=== PATIENT | male | born 1935 | race Caucasian/White ===

== ENCOUNTER → 2017-10-20 09:36 | Outpatient (CLI) | payer MEDICARE, BC, OTHER, SELFPAY ==
[2017-10-20 12:18] LABS: Absolute Lymphocyte Count 0.75 X10^3/ul (0.83-4.51); Absolute Neutrophil Count 3.8 X10^3/uL (2.0-7.7); Basophil# 0.01 X10^3/uL; Basophil% 0.2 % (0-1); Eosinophil# 0.14 X10^3/uL; Eosinophils% 2.6 % (0-5); Hematocrit 46.2 % (40-54); Lymphocyte # 0.75 X10^3/ul (4.0); Lymphocyte % 14.1 % (19-41); Mean Corp Hgb Conc 34.6 g/gl (32-36); Mean Corpuscular Hgb 30.9 pg (27.0-32.0); Mean Corpuscular Volume 89.2 fL (80-94); Monocyte# 0.64 X10^3/uL; Monocyte% 12.1 % (0-10); Neutrophil # 3.76 X10^3/uL (2.7-7.7); Neutrophil % 70.8 % (47-70); Platelet Count 144 K/mm3 (150-450); RBC Distribution Width CV 12.8 % (11.6-14.6); RBC Distribution Width SD 41.9 fl (35.1-43.9); Red Blood Count 5.18 M/mm3 (4.6-6.2); White Blood Count 5.3 K/mm3 (4.4-11.0)
[2017-10-20 12:22] LABS: POSITIVE COUNT NO; POSITIVE DIFFERENTIAL NO; POSITIVE MORPHOLOGY NO
[2017-10-20 12:32] LABS: Anion Gap 9 (5-15); BUN 22 mg/dL (7-18); BUN/Creat Ratio 21.4 RATIO (10-20); Calcium,Total 8.9 mg/dL (8.5-10.1); Chloride 107 mmol/L (98-107); Creatinine, Serum 1.03 mg/dL (0.70-1.30); EST Glomerular Filtration Rate 73 mL/min (>60); Est Glom Filt Rate - Afr Amer 89 mL/min (>60); Glucose 127 mg/dL (74-106); Magnesium 2.3 mg/dL (1.6-2.6); Potassium 4.4 mmol/L (3.5-5.1); Sodium Level 143 mmol/L (136-145); T4 Free Direct 1.37 ng/dL (0.76-1.46); Thyroid Stim Hormone (TSH) 0.73 uIU/mL (0.358-3.74)
== END ==
PROVIDERS: Family Provider Family Medicine; PCP Family Medicine; Visit Provider Family Medicine
DX: I10 Essential (primary) hypertension (principal); E61.2 Magnesium deficiency; D69.6 Thrombocytopenia, unspecified; R60.9 Edema, unspecified
CPT/HCPCS: 36415; 80048; 83735; 84439; 84443; 85025

== ENCOUNTER → 2018-07-07 11:01 | Outpatient (CLI) | payer MEDICARE, BC, OTHER, SELFPAY ==
[2018-07-07 12:13] LABS: Absolute Lymphocyte Count 0.57 X10^3/ul (0.83-4.51); Absolute Neutrophil Count 6.3 X10^3/uL (2.0-7.7); Basophil# 0.02 X10^3/uL; Basophil% 0.3 % (0-1); Eosinophil# 0.05 X10^3/uL; Eosinophils% 0.7 % (0-5); Hemoglobin 15.9 g/dl (13.0-16.5); Lymphocyte # 0.57 X10^3/ul (4.0); Lymphocyte % 7.8 % (19-41); Mean Corp Hgb Conc 34.6 g/gl (32-36); Mean Corpuscular Hgb 30.8 pg (27.0-32.0); Mean Platelet Vol. 10.9 fl (6.2-12.0); Monocyte# 0.45 X10^3/uL; Monocyte% 6.1 % (0-10); Neutrophil # 6.25 X10^3/uL (2.7-7.7); Platelet Count 154 K/mm3 (150-450); RBC Distribution Width SD 42.4 fl (35.1-43.9); Red Blood Count 5.17 M/mm3 (4.6-6.2); White Blood Count 7.4 K/mm3 (4.4-11.0)
[2018-07-07 12:15] LABS: Differential Indicated SCAN CRITERIA MET; POSITIVE COUNT NO; POSITIVE DIFFERENTIAL YES; POSITIVE MORPHOLOGY NO
== END ==
PROVIDERS: Family Provider Family Medicine; PCP Family Medicine; Visit Provider Family Medicine
DX: K92.1 Melena (principal); R19.7 Diarrhea, unspecified
CPT/HCPCS: 36415; 85025; 87329

== ENCOUNTER → 2018-10-23 13:28 | Outpatient (CLI) | payer MEDICARE, BC, OTHER, SELFPAY ==
[2018-10-23 16:03] LABS: Vitamin B12 465 pg/mL (211-911)
[2018-10-23 16:09] LABS: CRP < 2.90 mg/L (0.0-3.0); Magnesium 2.3 mg/dL (1.6-2.6); T4 Free Direct 1.19 ng/dL (0.76-1.46); Thyroid Stim Hormone (TSH) 1.26 uIU/mL (0.358-3.74)
== END ==
PROVIDERS: Family Provider Family Medicine; PCP Family Medicine; Visit Provider Family Medicine
DX: R20.2 Paresthesia of skin (principal); E78.5 Hyperlipidemia, unspecified; E61.2 Magnesium deficiency
CPT/HCPCS: 36415; 82607; 83735; 84439; 84443; 86140

== ENCOUNTER → 2018-11-20 14:56 | Outpatient (CLI) | payer MEDICARE, BC, OTHER, SELFPAY ==
--- NOTE | 2018-11-20 16:00 | MRI_ITS ---
STUDY: MRI LUMBAR SPINE WITH AND WITHOUT CONTRAST REASON FOR EXAM: Male, 83 years old. Bilateral leg numbness after lifting heavy object, history of T7-T8 hemangioma TECHNIQUE: Standardized fat and water weighted pulse sequences were obtained in the sagittal and axial planes. 19 IV Dotarem was administered for the contrast portion of the examination. 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 The degree of displacement is stable since 2014. The rest of the vertebral bodies are aligned. There is a limbus change of L2 anterior superior corner. Diffuse marrow is normal with superimposed subchondral degenerative change. Paraspinous soft tissues are normal. Only the superior portions of SI joints are imaged and no diagnostic assessment can be made. Conus medullaris terminates at L1. Cauda equina is restricted at L4-L5. L4-L5 has mild spondylotic thecal sac compression. There is right lateral recess stenosis with patent left recess. There is severe bilateral foraminal stenosis. Remainder of the levels have patent thecal sac. There is severe left L5-S1 spondylotic foraminal stenosis. There is mild focal degenerative enhancement in the right L4-L5 posterior elements. Marrow, epidural and intradural enhancement is normal. Overall appearance is similar to 2014. MRI/Spine Lumbar W/WO Contrast IMPRESSION: 1. 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 2. Mild L4-L5 spondylotic thecal sac stenosis. 3. Bilateral L4-L5 and left L5-S1 chronic stable foraminal stenosis. 4. No enhancing lesions. Electronically Signed: Stacy Bahena, at 18:32 EDT Tel , Service support ,
[2018-11-20 16:11] LABS: EGFR FINGERSTICK > 60.0000 mL/min (>60)
== END ==
PROVIDERS: Family Provider Family Medicine; PCP Family Medicine; Referring Provider Family Medicine; Visit Provider Family Medicine
DX: D18.09 Hemangioma of other sites (principal); R20.2 Paresthesia of skin; Z92.3 Personal history of irradiation
CPT/HCPCS: 72158; A9575

== ENCOUNTER → 2018-12-08 09:04 | Outpatient (CLI) | payer MEDICARE, BC, OTHER, SELFPAY ==
--- NOTE | 2018-12-08 09:12 | MRI_ITS ---
STUDY: MRI THORACIC SPINE WITH AND WITHOUT CONTRAST REASON FOR EXAM: Male, 83 years old. Lower leg numbness. Prior surgery for HEMANGIOMA at T7-T8 in 2002 TECHNIQUE: 20 IV Dotarem was administered for the contrast portion of the examination. COMPARISON: 01/17/2009 FINDINGS: Right-sided laminectomy at the T7-8 level. Normal thoracic spinal alignment. No evidence of acute compression fracture. The thoracic cord is unremarkable. Diffuse spondylosis. Patchy areas of T1 and T2 hyperintensity throughout the mid and lower thoracic vertebral bodies could be related to prior radiation therapy. Mild diffuse degenerative disc disease without evidence of significant central canal stenosis or lara exiting nerve root impingement. Moderate right foraminal stenosis at the T7-8 level. Paraspinal soft tissues are unremarkable. MRI/Spine Thoracic W/WO Contrast IMPRESSION: Multilevel degenerative disease and postoperative change as described. No evidence of cord pathology or nerve root impingement. Electronically Signed: Dontrell Wheeler MD at 11:57 EDT Tel , Service support ,
== END ==
PROVIDERS: Family Provider Family Medicine; PCP Family Medicine
DX: D18.09 Hemangioma of other sites (principal); Z98.890 Other specified postprocedural states
CPT/HCPCS: 72157; A9575

== ENCOUNTER → 2018-12-09 07:22 | Outpatient (CLI) | payer MEDICARE, BC, OTHER, SELFPAY ==
--- NOTE | 2018-12-09 10:26 | NEURO_ITS ---
NCS and/or EMG Patient Report Ordering Doctor: nathalie Rosas DATE OF SERVICE: 12/09/18 This is a bilateral lower extremity nerve conduction study and right lower extremity EMG performed on this 83-year-old male with a history of thoracic spine surgery and radiation for hematoma in 2002. In August he began to experience acute numbness in his feet, after pushing on a heavy object. He does not have back pain and did not experience back pain at any point. He is healthy otherwise. There is no history of diabetes. Prior to August he did drink 1 to 2 ounces of alcohol per day, since that time his use of alcohol has been reduced. He does report significant stress since August. Bilateral lower extremity sensory and motor nerve conduction study is performed. The sural sensory responses are absent bilaterally and the conduction velocities from the motor nerves are symmetrically slowed with reduced amplitudes and prolonged distal latencies. The tibial and common peroneal F- wave latencies are prolonged and the tibial H reflex responses are reduced symmetrically. Right lower extremity needle electromyography is performed. Muscles evaluate include the extensor digitorum brevis, abductor hallucis, medial gastrocnemius, anterior tibialis, vastus medialis and vastus lateralis muscles. All muscles demonstrated normal insertional activity with absence of pathologic spontaneous activity. Motor unit potential recruitment pattern and amplitude was normal in all muscles tested. 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 Other investigations could include serology for B12 levels, serum and urine protein electrophoresis, and LFTs. Dictated using [employer] software not proofread
== END ==
PROVIDERS: Family Provider Family Medicine; PCP Family Medicine
DX: M43.16 Spondylolisthesis, lumbar region (principal); G62.9 Polyneuropathy, unspecified
CPT/HCPCS: 95886; 95910

== ENCOUNTER → 2018-12-11 09:48 | Outpatient (CLI) | payer MEDICARE, BC, OTHER, SELFPAY ==
[2018-12-11 12:15] LABS: Absolute Lymphocyte Count 0.58 X10^3/uL (0.83-4.51); Absolute Neutrophil Count 6.7 X10^3/uL (2.0-7.7); Basophil# 0.03 X10^3/uL; Basophil% 0.4 % (0-1); Eosinophil# 0.08 X10^3/uL; Hematocrit 47.6 % (40-54); Hemoglobin 15.9 g/dL (13.0-16.5); Lymphocyte # 0.58 X10^3/ul (4.0); Lymphocyte % 7.4 % (19-41); Mean Corp Hgb Conc 33.4 g/dL (32-36); Mean Corpuscular Hgb 30.8 pg (27.0-32.0); Mean Corpuscular Volume 92.1 fL (80-94); Mean Platelet Vol. 10.9 fl (6.2-12.0); Monocyte# 0.45 X10^3/uL; Monocyte% 5.7 % (0-10); NRBC Flagged by Analyzer 0 % (0-5); Neutrophil % 85.2 % (47-70); POSITIVE DIFFERENTIAL YES; Platelet Count 144 K/mm3 (150-450); RBC Distribution Width CV 12.4 % (11.6-14.6); RBC Distribution Width SD 42.3 fl (35.1-43.9); Red Blood Count 5.17 M/mm3 (4.6-6.2); White Blood Count 7.9 K/mm3 (4.4-11.0)
[2018-12-11 12:21] LABS: Differential Indicated SCAN CRITERIA MET
[2018-12-11 13:05] LABS: ALB/GLOB Ratio 1.1 RATIO (0.9-2.4); AST(SGOT) 21 U/L (15-37); Alanine Aminotransfer ALT/SGPT 36 U/L (16-61); Albumin, Serum 3.4 g/dL (3.2-5.0); Alkaline Phosphatase 97 U/L (45-117); Anion Gap 9 (5-15); BUN 21 mg/dL (7-18); BUN/Creat Ratio 19.1 RATIO (10-20); Calcium,Total 8.8 mg/dL (8.5-10.1); Chloride 107 mmol/L (98-107); EST Glomerular Filtration Rate 68 mL/min (>60); Est Glom Filt Rate - Afr Amer 82 mL/min (>60); Globulin 3.2 g/dL (2.2-4.2); Glucose 164 mg/dL (74-106); Potassium 3.8 mmol/L (3.5-5.1); Protein, Total 6.6 g/dL (6.4-8.2); Sodium Level 141 mmol/L (136-145)
[2018-12-15 16:08] LABS: PROEL- A/G Ratio 1.3 (0.7-1.7); PROEL- Albumin 3.5 g/dL (2.9-4.4); PROEL- Alpha-1 Globulin 0.2 g/dL (0.0-0.4); PROEL- Alpha-2 Globulin 0.8 g/dL (0.4-1.0); PROEL- Beta Globulin 0.9 g/dL (0.7-1.3); PROEL- Gamma Globulin 0.7 g/dL (0.4-1.8); PROEL- Globulin, Total 2.7 g/dL (2.2-3.9); PROEL- TOTAL PROTEIN 6.2 g/dL (6.0-8.5); PROELU- Albumin, Urine 66.5 % (.); PROELU- Alpha-1-Globulin,Ur 5.1 % (.); PROELU- Alpha-2-Globulin,Ur 6.7 % (.); PROELU- Beta Globulin, Ur 11.7 % (.); Total Protein, Ur 30.3 mg/dL (Not Estab.)
== END ==
PROVIDERS: Family Provider Family Medicine; PCP Family Medicine; Visit Provider Family Medicine
DX: G62.9 Polyneuropathy, unspecified (principal); R20.2 Paresthesia of skin
CPT/HCPCS: 36415; 80053; 84165; 84166; 85025

== ENCOUNTER → 2018-12-21 09:42 | Outpatient (CLI) | payer MEDICARE, BC, OTHER, SELFPAY ==
--- NOTE | 2018-12-21 10:05 | ART_ITS ---
Reason For Study: Peripheral Neuropathy Procedure A bilateral lower extremity continuous wave Doppler with analog waveform analysis,segmental pressures,and ankle brachial indexes without exercise. Left Segmental Pressures Left brachial= 162mmHg. Left posterior tibial artery = 190mmHg. Left dorsalis pedis artery = 189mmHg. Left digit = 143 mmHg. The left dorsalis pedis waveforms are triphasic. The left posterior tibial artery waveforms are triphasic. Right Segmental Pressures Right brachial= 158mmHg. Right posterior tibial artery = 214mmHg. Right dorsalis pedis artery = 209mmHg. Right digit = 153 mmHg. The right dorsalis pedis waveforms are triphasic. The right posterior tibial artery waveforms are triphasic. Indices The right ankle brachial index by the dorsalis pedis is 1.29. The right ankle brachial index by the posterior tibial artery is 1.32. The right digital-brachial index is 0.94. The left ankle brachial index by the dorsalis pedis is 1.17. The left ankle brachial index by the posterior tibial artery is 1.17. The left digital-brachial index is 0.88. Interpretation Summary Triphasic Doppler waveforms are noted at ankle level bilaterally. Pulse-volume recording waveform amplitudes are satisfactory at all levels but the left digital level, which is diminished. Resting ankle-brachial indices are normal bilaterally. Digital-brachial indices are normal bilaterally. There is no evidence of significant arterial occlusive disease in the lower extremities bilaterally. Ordering Physician: Johnny Caputo Referring Physician: Darrel Bryant Performed By: Felicia Sahu RVT
== END ==
PROVIDERS: Family Provider Family Medicine; PCP Family Medicine
DX: I73.9 Peripheral vascular disease, unspecified (principal); G62.9 Polyneuropathy, unspecified
CPT/HCPCS: 93923

== ENCOUNTER → 2019-01-11 13:09 | Outpatient (CLI) | payer MEDICARE, BC, OTHER, SELFPAY ==
[2019-01-11 15:04] LABS: Absolute Neutrophil Count 5.4 X10^3/uL (2.0-7.7); Basophil# 0.03 X10^3/uL; Basophil% 0.5 % (0-1); Differential Indicated SCAN CRITERIA MET; Eosinophil# 0.06 X10^3/uL; Eosinophils% 0.9 % (0-5); Hematocrit 48.3 % (40-54); Hemoglobin 16.2 g/dL (13.0-16.5); Lymphocyte % 9.1 % (19-41); Mean Corp Hgb Conc 33.5 g/dL (32-36); Mean Corpuscular Volume 92.4 fL (80-94); Mean Platelet Vol. 10.9 fl (6.2-12.0); Monocyte# 0.52 X10^3/uL; Monocyte% 7.9 % (0-10); NRBC Flagged by Analyzer 0 % (0-5); Neutrophil # 5.35 X10^3/uL (2.7-7.7); Neutrophil % 81.3 % (47-70); POSITIVE DIFFERENTIAL YES; Platelet Count 155 K/mm3 (150-450); RBC Distribution Width CV 12.5 % (11.6-14.6); RBC Distribution Width SD 42.5 fl (35.1-43.9); Red Blood Count 5.23 M/mm3 (4.6-6.2); White Blood Count 6.6 K/mm3 (4.4-11.0)
[2019-01-11 15:28] LABS: Hemoglobin A1c 6.1 % (4.2-6.3)
[2019-01-11 15:30] LABS: ALB/GLOB Ratio 1.2 RATIO (0.9-2.4); AST(SGOT) 20 U/L (15-37); Alanine Aminotransfer ALT/SGPT 35 U/L (16-61); Albumin, Serum 3.6 g/dL (3.2-5.0); Alkaline Phosphatase 87 U/L (45-117); Anion Gap 10 (5-15); BUN 27 mg/dL (7-18); Chloride 106 mmol/L (98-107); Creatinine, Serum 1.23 mg/dL (0.70-1.30); EST Glomerular Filtration Rate 60 mL/min (>60); Est Glom Filt Rate - Afr Amer 72 mL/min (>60); Glucose 143 mg/dL (74-106); Lipase 239 U/L (73-393); Potassium 4.5 mmol/L (3.5-5.1); Protein, Total 6.6 g/dL (6.4-8.2); Sodium Level 142 mmol/L (136-145); T4 Free Direct 1.14 ng/dL (0.76-1.46)
[2019-01-11 15:32] LABS: Vitamin B12 696 pg/mL (211-911)
[2019-01-11 15:46] LABS: Differential Comment SCANNED
== END ==
PROVIDERS: PCP Family Medicine; Visit Provider Family Medicine
DX: G62.9 Polyneuropathy, unspecified (principal); R20.2 Paresthesia of skin; D69.6 Thrombocytopenia, unspecified; R73.01 Impaired fasting glucose; F41.9 Anxiety disorder, unspecified
CPT/HCPCS: 36415; 80053; 82607; 83036; 83690; 84439; 84443; 85025

== ENCOUNTER → 2019-02-03 11:48 | Outpatient (CLI) | payer MEDICARE, BC, OTHER, SELFPAY ==
[2019-02-03 15:42] LABS: Absolute Lymphocyte Count 0.59 X10^3/uL (0.83-4.51); Basophil# 0.05 X10^3/uL; Basophil% 0.7 % (0-1); Eosinophils% 1.3 % (0-5); Hematocrit 52.2 % (40-54); Hemoglobin 17.3 g/dL (13.0-16.5); Lymphocyte # 0.59 X10^3/ul (4.0); Lymphocyte % 7.9 % (19-41); Mean Corp Hgb Conc 33.1 g/dL (32-36); Mean Corpuscular Hgb 30.7 pg (27.0-32.0); Mean Corpuscular Volume 92.7 fL (80-94); Mean Platelet Vol. 10.9 fl (6.2-12.0); Monocyte# 0.64 X10^3/uL; Monocyte% 8.6 % (0-10); NRBC Flagged by Analyzer 0 % (0-5); Neutrophil # 6.04 X10^3/uL (2.7-7.7); Neutrophil % 81.1 % (47-70); POSITIVE DIFFERENTIAL YES; Platelet Count 157 K/mm3 (150-450); RBC Distribution Width CV 12.1 % (11.6-14.6); RBC Distribution Width SD 41.8 fl (35.1-43.9); Red Blood Count 5.63 M/mm3 (4.6-6.2); White Blood Count 7.5 K/mm3 (4.4-11.0)
[2019-02-03 15:58] LABS: Hemoglobin A1c 5.7 % (4.2-6.3)
[2019-02-03 16:02] LABS: AST(SGOT) 18 U/L (15-37); Alanine Aminotransfer ALT/SGPT 34 U/L (16-61); Albumin, Serum 3.5 g/dL (3.2-5.0); Alkaline Phosphatase 92 U/L (45-117); Anion Gap 8 (5-15); BUN 22 mg/dL (7-18); BUN/Creat Ratio 22.4 RATIO (10-20); Calcium,Total 8.9 mg/dL (8.5-10.1); Chloride 104 mmol/L (98-107); Creatinine, Serum 0.98 mg/dL (0.70-1.30); EST Glomerular Filtration Rate 77 mL/min (>60); Est Glom Filt Rate - Afr Amer 94 mL/min (>60); Globulin 3.4 g/dL (2.2-4.2); Glucose 96 mg/dL (74-106); PSA,Total - Annual Screen 2.08 ng/mL (0.00-4.00); Potassium 4.1 mmol/L (3.5-5.1); Protein, Total 6.9 g/dL (6.4-8.2); Sodium Level 139 mmol/L (136-145); T4 Free Direct 1.17 ng/dL (0.76-1.46); Thyroid Stim Hormone (TSH) 1.59 uIU/mL (0.358-3.74)
[2019-02-03 16:15] LABS: Differential Indicated SCAN CRITERIA MET
[2019-02-03 17:45] LABS: Platelet Estimate ADEQUATE (ADEQ); Red Cell Morphology NORM C+C NORMAL (NORM C&C)
== END ==
PROVIDERS: Family Provider Family Medicine; PCP Family Medicine; Visit Provider Family Medicine
DX: Z01.812 Encounter for preprocedural laboratory examination (principal); E03.9 Hypothyroidism, unspecified; R63.4 Abnormal weight loss; D69.6 Thrombocytopenia, unspecified; I10 Essential (primary) hypertension; Z12.9 Encounter for screening for malignant neoplasm, site unspecified
CPT/HCPCS: 36415; 80053; 83036; 84153; 84439; 84443; 85025; G0103

== ENCOUNTER → 2019-06-02 15:56 | Outpatient (CLI) | payer MEDICARE, BC, OTHER, SELFPAY ==
[2019-02-11 15:09] VITALS: BMI 29.9
[2019-06-02 17:43] LABS: Absolute Lymphocyte Count 0.77 X10^3/uL (0.83-4.51); Absolute Neutrophil Count 5.5 X10^3/uL (2.0-7.7); Basophil# 0.03 X10^3/uL; Basophil% 0.4 % (0-1); Eosinophil# 0.11 X10^3/uL; Eosinophils% 1.6 % (0-5); Hematocrit 48.4 % (40-54); Hemoglobin 16.5 g/dL (13.0-16.5); Lymphocyte # 0.77 X10^3/ul (4.0); Mean Corp Hgb Conc 34.1 g/dL (32-36); Mean Corpuscular Hgb 30.9 pg (27.0-32.0); Mean Corpuscular Volume 90.6 fL (80-94); Monocyte# 0.57 X10^3/uL; Monocyte% 8.1 % (0-10); NRBC Flagged by Analyzer 0 % (0-5); Neutrophil # 5.51 X10^3/uL (2.7-7.7); Neutrophil % 78.6 % (47-70); Platelet Count 154 K/mm3 (150-450); RBC Distribution Width CV 12.2 % (11.6-14.6); RBC Distribution Width SD 39.9 fl (35.1-43.9); Red Blood Count 5.34 M/mm3 (4.6-6.2)
[2019-06-02 18:04] LABS: AST(SGOT) 24 U/L (15-37); Alanine Aminotransfer ALT/SGPT 38 U/L (16-61); Albumin, Serum 3.4 g/dL (3.2-5.0); Alkaline Phosphatase 91 U/L (45-117); Anion Gap 6 (5-15); BUN 35 mg/dL (7-18); BUN/Creat Ratio 28.7 RATIO (10-20); Calcium,Total 8.7 mg/dL (8.5-10.1); Chloride 109 mmol/L (98-107); Creatinine, Serum 1.22 mg/dL (0.70-1.30); EST Glomerular Filtration Rate 60 mL/min (>60); Est Glom Filt Rate - Afr Amer 73 mL/min (>60); Globulin 3.3 g/dL (2.2-4.2); Glucose 157 mg/dL (74-106); Magnesium 2.2 mg/dL (1.6-2.6); Potassium 3.8 mmol/L (3.5-5.1); Protein, Total 6.7 g/dL (6.4-8.2); Sodium Level 140 mmol/L (136-145); T4 Free Direct 1.04 ng/dL (0.76-1.46); Thyroid Stim Hormone (TSH) 2.52 uIU/mL (0.358-3.74)
== END ==
PROVIDERS: PCP Family Medicine; Visit Provider Family Medicine
DX: F41.9 Anxiety disorder, unspecified (principal); E87.6 Hypokalemia; E03.9 Hypothyroidism, unspecified; D69.6 Thrombocytopenia, unspecified; E83.42 Hypomagnesemia
CPT/HCPCS: 36415; 80053; 83735; 84439; 84443; 85025

== ENCOUNTER → 2019-09-08 09:38 | Outpatient (CLI) | payer MEDICARE, BC, OTHER, SELFPAY ==
[2019-07-28 14:51] VITALS: BMI 28.7
[2019-09-08 12:46] LABS: AST(SGOT) 27 U/L (15-37); Alanine Aminotransfer ALT/SGPT 37 U/L (16-61); Albumin, Serum 3.6 g/dL (3.2-5.0); Alkaline Phosphatase 101 U/L (45-117); Bilirubin, Direct 0.19 mg/dL (0.00-0.30); Cholesterol 161 mg/dL (200); Globulin 3.3 g/dL (2.2-4.2); High Density Lipoprotein 40 mg/dL; Protein, Total 6.9 g/dL (6.4-8.2); Triglycerides 170 mg/dL; Very Low Density Lipoprotein 34 mg/dL (5-40)
== END ==
PROVIDERS: PCP Family Medicine; Visit Provider Internal Medicine Cardiovascular Disease
DX: E03.9 Hypothyroidism, unspecified (principal); E78.00 Pure hypercholesterolemia, unspecified; I44.0 Atrioventricular block, first degree; I35.0 Nonrheumatic aortic (valve) stenosis; I47.1 Supraventricular tachycardia
CPT/HCPCS: 36415; 80061; 80076

== ENCOUNTER → 2019-11-16 08:42 | Outpatient (CLI) | payer MEDICARE, BC, OTHER, SELFPAY ==
[2019-07-28 14:51] VITALS: BMI 28.7
== END ==
PROVIDERS: PCP Family Medicine; Referring Provider Internal Medicine Cardiovascular Disease; Visit Provider Internal Medicine Cardiovascular Disease
DX: I47.1 Supraventricular tachycardia (principal); I44.0 Atrioventricular block, first degree
CPT/HCPCS: 93225; 93226

== ENCOUNTER → 2019-12-24 12:47 | Outpatient (CLI) | payer MEDICARE, BC, OTHER, SELFPAY ==
[2019-07-28 14:51] VITALS: BMI 28.7
--- NOTE | 2019-12-24 12:49 | ECHOD_ITS ---
Reason For Study: Murmur Procedure This was a 2D Doppler, Color Flow transthoracic echocardiogram. The study was technically difficult. Exam performed in department. Left Ventricle Normal LV size. Left ventricular systolic function is normal. The estimated ejection fraction is 65 %. Diastolic function is indeterminate. No regional wall motion abnormalities noted. Right Ventricle Normal RV size. Normal systolic function. Atria The left atrium is mildly enlarged. The right atrium is mildly enlarged. No doppler evidence for ASD. Mitral Valve There is no mitral annular calcification. Normal mitral valve. Mild (1+) mitral valve insufficiency. Tricuspid Valve Normal tricuspid valve. Mild tricuspid valve insufficiency. Right ventricular systolic pressure estimated to be 23 mmHg. Aortic Valve Trisinus/trileaflet aortic valve. Moderate diffuse aortic valve calcification. Mild to moderate aortic stenosis. Pulmonic Valve The pulmonic valve is not well visualized. Great Vessels The aortic root is not well visualized. Pericardium/Pleural No pericardial effusion. MMode/2D Measurements & Calculations LVIDd: 4.1 cm IVSd: 1.1 cm LVOT diam: 2.0 cm LVIDs: 2.7 cm LVPWd: 0.91 cm LVOT area: 3.2 cm2 RVDd: 4.6 cm FS: 35.3 % LA dimension: 4.0 cm LAV(MOD-bp): 80.0 ml LVAd ap4: 28.2 cm2 LAV(MOD-bp) Indexed: 38.3 ml/m2 EDV(MOD-sp4): 82.3 ml LAV(MOD-sp2): 80.5 ml EDV(sp4-el): 83.4 ml LAV(MOD-sp4): 69.0 ml LVAs ap4: 14.5 cm2 ESV(MOD-sp4): 27.6 ml ESV(sp4-el): 28.1 ml EF(MOD-sp4): 66.5 % EF(sp4-el): 66.4 % SV(MOD-sp4): 54.7 ml SV(sp4-el): 55.4 ml Aortic Valve Planimetry: 1.1 cm2 LA A4 area: 23.0 cm2 RA A4 area: 22.4 cm2 Time Measurements MV dec time: 0.40 sec Doppler Measurements & Calculations MV E max jake: 55.6 cm/sec Lat Peak E' Jake: 6.0 cm/sec Med Peak E' Jake: 4.6 cm/sec MV A max jake: 89.8 cm/sec E/E' lat: 9.3 E/E' med: 12.0 MV E/A: 0.62 MV V2 max: 101.3 cm/sec MV P1/2t max jake: 65.7 cm/sec Ao V2 max: 227.2 cm/sec MV max P.1 mmHg MV P1/2t: 102.0 msec Ao max P.7 mmHg MV V2 mean: 49.1 cm/sec Ao V2 mean: 152.8 cm/sec MV mean P.2 mmHg MV dec slope: 188.5 cm/sec2 Ao mean P.7 mmHg MV V2 VTI: 28.5 cm MVA(P1/2t): 2.2 cm2 Ao V2 VTI: 52.7 cm MVA(VTI): 2.3 cm2 FAVIO(I,D): 1.3 cm2 FAVIO(V,D): 1.3 cm2 LV V1 max: 90.8 cm/sec SV(LVOT): 66.0 ml PA V2 max: 90.5 cm/sec LV V1 max P.3 mmHg LV V1 mean P.4 mmHg LV V1 mean: 54.3 cm/sec LV V1 VTI: 20.5 cm TR max jake: 224.4 cm/sec TR max P.1 mmHg Interpretation Summary The study was technically difficult. Left ventricular systolic function is normal. The estimated ejection fraction is 65 %. The left atrium is mildly enlarged. The right atrium is mildly enlarged. Mild (1+) mitral valve insufficiency. Mild tricuspid valve insufficiency. Mild to moderate aortic stenosis. Right ventricular systolic pressure estimated to be 23 mmHg. Diastolic function is indeterminate. Ordering Physician: Yo Hastings Referring Physician: Darrel Bryant Performed By: Sonny Goodman RCS
== END ==
PROVIDERS: PCP Family Medicine; Referring Provider Internal Medicine Cardiovascular Disease; Visit Provider Internal Medicine Cardiovascular Disease
DX: I35.0 Nonrheumatic aortic (valve) stenosis (principal)
CPT/HCPCS: 93306

== ENCOUNTER → 2020-03-20 13:28 | Outpatient (CLI) | payer MEDICARE, BC, OTHER, SELFPAY ==
[2020-03-08 09:59] VITALS: BMI 29.9
[2020-03-20 15:41] LABS: Absolute Lymphocyte Count 0.61 X10^3/uL (0.83-4.51); Absolute Neutrophil Count 5.4 X10^3/uL (2.0-7.7); Basophil# 0.04 X10^3/uL; Basophil% 0.6 % (0-1); Eosinophil# 0.08 X10^3/uL; Eosinophils% 1.2 % (0-5); Hematocrit 49.3 % (40-54); Hemoglobin 16.7 g/dL (13.0-16.5); Lymphocyte # 0.61 X10^3/ul (4.0); Lymphocyte % 9.1 % (19-41); Mean Corp Hgb Conc 33.9 g/dL (32-36); Mean Corpuscular Volume 91.5 fL (80-94); Mean Platelet Vol. 10.7 fl (6.2-12.0); Monocyte# 0.53 X10^3/uL; Monocyte% 7.9 % (0-10); NRBC Flagged by Analyzer 0 % (0-5); Neutrophil # 5.42 X10^3/uL (2.7-7.7); Neutrophil % 80.9 % (47-70); Platelet Count 161 K/mm3 (150-450); RBC Distribution Width CV 12.3 % (11.6-14.6); Red Blood Count 5.39 M/mm3 (4.6-6.2); White Blood Count 6.7 K/mm3 (4.4-11.0)
[2020-03-20 15:55] LABS: ALB/GLOB Ratio 1.1 RATIO (0.9-2.4); AST(SGOT) 20 U/L (15-37); Alanine Aminotransfer ALT/SGPT 34 U/L (16-61); Albumin, Serum 3.4 g/dL (3.2-5.0); Alkaline Phosphatase 91 U/L (45-117); Anion Gap 5 (5-15); BUN 22 mg/dL (7-18); Calcium,Total 8.9 mg/dL (8.5-10.1); Chloride 107 mmol/L (98-107); Creatinine, Serum 1.05 mg/dL (0.70-1.30); EST Glomerular Filtration Rate 71 mL/min (>60); Est Glom Filt Rate - Afr Amer 86 mL/min (>60); Globulin 3.1 g/dL (2.2-4.2); Glucose 104 mg/dL (74-106); Potassium 4.2 mmol/L (3.5-5.1); Protein, Total 6.5 g/dL (6.4-8.2); Sodium Level 140 mmol/L (136-145); T4 Free Direct 1.22 ng/dL (0.76-1.46); Thyroid Stim Hormone (TSH) 1.76 uIU/mL (0.358-3.74)
[2020-03-20 15:59] LABS: Vitamin B12 834 pg/mL (211-911)
== END ==
PROVIDERS: PCP Family Medicine; Visit Provider Family Medicine
DX: I10 Essential (primary) hypertension (principal); E78.5 Hyperlipidemia, unspecified; E03.9 Hypothyroidism, unspecified; G62.9 Polyneuropathy, unspecified; D69.6 Thrombocytopenia, unspecified
CPT/HCPCS: 36415; 80053; 82607; 84439; 84443; 85025

== ENCOUNTER → 2020-10-23 16:39 | Outpatient (CLI) | payer MEDICARE, BC, OTHER, SELFPAY ==
[2020-08-31 09:34] VITALS: BMI 28.7
[2020-10-23 18:06] LABS: Creatinine, Serum 1.23 mg/dL (0.70-1.30); EST Glomerular Filtration Rate 59 mL/min (>60); Est Glom Filt Rate - Afr Amer 72 mL/min (>60)
== END ==
PROVIDERS: PCP Family Medicine; Referring Provider Otolaryngology; Visit Provider Otolaryngology
DX: H90.A22 Sensorineural hearing loss, unilateral, left ear, with restricted hearing on the contralateral side (principal)
CPT/HCPCS: 36415; 82565

== ENCOUNTER → 2020-11-01 16:06 | Outpatient (CLI) | payer MEDICARE, BC, OTHER, SELFPAY ==
[2020-08-31 09:34] VITALS: BMI 28.7
--- NOTE | 2020-11-01 16:25 | MRI_ITS ---
STUDY: MRI BRAIN WITH AND WITHOUT CONTRAST REASON FOR EXAM: Male, 85 years old. HEARING LOSS LEFT EAR, and quot;PLUGGED and quot; LEFT EAR TECHNIQUE: Standardized multiplanar fat and water weighted pulse sequences were obtained. 18ML iv DOTAREM was administered for the contrast portion of the examination. COMPARISON: None. FINDINGS: Incidental note is made of a new enhancing intraventricular nodule in the frontal horn of the left lateral ventricle Measuring approximately 5 x 9 mm in transverse and AP dimensions. There is moderate cerebral atrophy with widening of the extra-axial spaces and ventricular dilatation. There are multiple white matter hyperintensities, distributed throughout the deep white matter tracts of the cerebral hemispheres, consistent with moderate chronic white matter ischemic changes. There is no evidence for recent intracranial ischemia or other cause of cytotoxic edema on diffusion weighted imaging (DWI). Normal bilateral basal ganglia. Normal thalami. There is no extra-axial fluid accumulation. Normal flow voids within the major intracranial circulation suggesting patency by spin echo criteria. Normal venous enhancement. Normal sella turcica, pituitary gland, infundibular stalk, optic chiasm and hypothalamus. Normal tectal plate and pineal gland. Normal midbrain, finn and medulla. Normal cerebellum. Normal basal cisterns. Normal bilateral temporal bones. Normal bilateral internal auditory canals. No demonstrated orbital abnormality, within the constraints of a routine brain study. Normal visualized paranasal sinuses. Normal calvarium and skull base. Normal visualized soft tissue structures. Normal visualized upper cervical spine. MRI/Brain W/WO Contrast IMPRESSION: Enhancing nodule frontal horn left lateral ventricle. Follow-up recommended. Otherwise no acute disease to explain left hearing loss. Electronically Signed: Morteza Gale MD at 23:26 EDT , Service support ,
== END ==
PROVIDERS: PCP Family Medicine; Referring Provider Otolaryngology; Visit Provider Otolaryngology
DX: H90.A22 Sensorineural hearing loss, unilateral, left ear, with restricted hearing on the contralateral side (principal)
CPT/HCPCS: 70553; A9575

== ENCOUNTER → 2021-01-22 | Outpatient (CLI) | payer MEDICARE, BC, OTHER, SELFPAY | END | disposition home or self-care (01) | LOC: LABSPEC 11:49 | PROVIDERS: PCP Family Medicine; Referring Provider Family Medicine; Visit Provider Family Medicine | DX: U07.1 COVID-19 (principal) | CPT/HCPCS: 87635; U0005; U0003 ==

== ENCOUNTER → 2021-02-14 09:25 | Outpatient (CLI) | payer MEDICARE, BC, OTHER, SELFPAY ==
--- NOTE | 2021-02-14 09:51 | MRI_ITS ---
EXAM: MR HEAD WITHOUT AND WITH INTRAVENOUS CONTRAST : 1934 CLINICAL INDICATION: MENINGIOMA,RECHECK TECHNIQUE: Multiplanar and multisequence MR images of the brain were obtained without and with intravenous contrast. This report was created using [employer] report generation technology. 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 Multiple foci of increased T2 signal intensity within the cerebral white matter consistent with gliosis/chronic microvascular disease. Encephalomalacic changes of left temporal lobe also again seen. Prominence of the cortical sulci and ventricles related to volume loss change. No intra- or extra-axial hemorrhage. No evidence of acute infarct. There is preservation of the persaud/white matter interface. Posterior fossa structures are unremarkable. Basal cisterns are patent. SELLA: Unremarkable. Normal sella turcica, pituitary gland, infundibular stalk, optic chiasm and hypothalamus. AUDITORY SYSTEM: Unremarkable. The internal auditory canals are patent. BONES/JOINTS: Unremarkable. No discrete lytic or blastic abnormalities. SINUSES: Unremarkable as visualized. Clear. MASTOID AIR CELLS: Unremarkable as visualized. Clear. ORBITS: Unremarkable as visualized. Both globes, extraocular muscles, optic nerves and retrobulbar fat appear unremarkable. VASCULATURE: Unremarkable as visualized. Normal flow voids in the major intracranial circulation. MRI/Brain W/WO Contrast IMPRESSION: 1. Stable left frontal horn lesion suggestive of a meningioma. 2. Stable chronic ischemic changes. at 1453 Reported and signed by: Haile Rodriguez MD Electronically Signed: Haile Rodriguez MD at 14:52 EST Tel , Service support ,
[2021-02-14 10:26] LABS: CREATININE FINGERSTICK 0.8 mg/dL (0.70-1.30); EGFR FINGERSTICK > 60.0000 mL/min (>60)
== END ==
PROVIDERS: PCP Family Medicine
DX: D49.6 Neoplasm of unspecified behavior of brain (principal)
CPT/HCPCS: 70553; A9575

== ENCOUNTER 2021-06-15 10:53 | Outpatient (CLI) | payer MEDICARE, BC, OTHER, SELFPAY ==
--- NOTE | 2021-06-15 10:59 | RAD_ITS ---
STUDY: X-RAY - PELVIS AND RIGHT HIP REASON FOR EXAM: Male, 86 years old. Fall. Hip pain. TECHNIQUE: 3 views of the pelvis and hip. COMPARISON: None. FINDINGS: There is a non-specific bowel gas pattern. Vascular calcification and phleboliths. Osteopenia. Mild arthrosis of both sacroiliac joints. Normal bilateral superior and inferior pubic rami. Mild arthrosis of the symphysis pubis. Enthesopathic changes of the ischii. Mild arthrosis of both hips. RAD/HIP, UNI W/ Pelvis 2-3 Views IMPRESSION: Osteopenia with osteoarthritic changes as described. Enthesopathic changes. No acute abnormality, evidence of erosive changes, or fusion. Electronically Signed: Man Donaldson MD at 12:26 EST ,
== END 2021-06-15 23:59 | disposition home or self-care (01) ==
LOC: MTRAD 10:56
PROVIDERS: PCP Family Medicine; Referring Provider Family Medicine; Visit Provider Family Medicine
DX: M16.11 Unilateral primary osteoarthritis, right hip (principal)
CPT/HCPCS: 73502

== ENCOUNTER 2021-07-03 11:00 | Outpatient (RCR) | payer MEDICARE, BC, OTHER, SELFPAY ==
--- NOTE | 2021-06-20 11:13 | HP.PTEVAL ---
Patient's Visit Information DESIREE ROMERO is a 86 year old M referred to Physical Therapy by Dr. Darrel Bryant MD with a diagnosis of multifactorial gait disorder. Date of Evaluation: 06/19/21 Physical Therapist: PRISCA Hull - Visit Plan Frequency: 2x /Week Duration: 2 Months Plan: 2X/ week for 4-8 weeks for LE strength, core strength, balance activities, bed mobility transfers, gait training, balance exercies with HEP - Subjective 4 years ago his and sure that has affected him mentally as far as stability and hunger. He is an lead electrical controls engineer degree. He lives alone with his dog. He is hoping in a month moving to an apartment in [place]. He thinks his biggest problem is dizziness and instability. The dizziness started once his . At first it was doable. At first getting away for a drive and decreasing stress helps with the dizziness. He has a sister up in [place] that comes and visits her and hoping the move up there helps him a lot. He reports that his biggest problem is balance and has fallen many times and hard to get back up because he is alone. He started using the walker in the last month or less. He was using one cane and sometimes 2 canes, one in each hand for about 6 months or so. He feels a lot of this is nerves and anxiety. He does not have close friends around to visit so that does not help. He feels that he can not stop falling if he loses his balance. His Dr has given the patient valium for when he needs it. He has also prescribed him some sleeping pills but thinks that they might be too strong because when he wakes up he is drowsy for 3 hours after. He fell 3-4 days ago and then 2 weeks ago (his hip was sore but everything was good on x-ray). He can not remember the exact mechanism of the falls but thinks that he was falling backwards. Pt has a hard time remembering things since his passing. Pt reports no feeling stable. He describes it as a feeling that he is going to fall and does not have a natural reaction to stop the fall. He has no back issues. He has good feeling in his legs. He has no steps in his new home and does not used steps in his current home. He feels that his legs are strong. - Objective Gait: he walk with a walker and walks outside of the walker with not picking up his feet with gait and even caught his toes on the carpet walking in the doorway. Adkusted his walker by making the walker taller and pt was able to to walk more upright but still likes to not walk with good heel to toe posture. Sit to stand: struggles to get up without the use of his hands and took 3 attempts and verbal cues to straighten his knees and weight shift his weight fw over toes. Pt sleeps in a recliner. CATSIB 25. Sit to supine with min to mod A and supine to sit with mod A due to poor trunk control and fear of falling off the table (pt sleeps in a recliner). Stairs: up and down recip with 2 hand rails with weakness present in both legs but seems worse on the L and almost missing the step due to decrease hip flexion on the L and descending the stairs recip with min A as well. LE MMT: Hip flex B 4-/5 (with use of arms), B knee ext 4/5, B knee flex 4/5, B hip flex 4-/5, B hip ext 3-/5. Pt is able to heel and toe raise with UE support. Pt walked out with more upright and inside the walker since we raised his walker height - Balance/Special Test Scores CATSIB Score (Max score 120 seconds): 25 Lower Extremity Functional Score: 31 - Goals Goal 1:: I HEP Goal Time Frame: 6-8 Weeks Goal 2:: Be able to walk 340 feet with rolling walker with upright posture without having to stop for a rest break. Goal Time Frame: 6-8 Weeks Goal 3:: Be able to sit to stand X 10 using 0-1 UE to increase leg strength Goal Time Frame: 6-8 Weeks Goal 4:: Increase CATSIB by 10 points to decrease fall risk (score was 25 at eval). Goal Time Frame: 6-8 Weeks Goal 5:: Be able to transfer from sit to supine and supine to sit with SBA Goal Time Frame: 6-8 Weeks - Rehabilitation Potential Rehabilitation Potential: Good - Anticipated Interventions Patient/Client Instruction: Educate patient on: Condition, Plan of Care For the Purpose of:: To improve nutrient delivery to tissue, To improve muscle performance and motor function, To improve ability to perform ADL's, To increase tolerance to activity/condition/position, To improve performance and independence with ADL's, To decrease level of supervision to perform tasks, To improve ability of physical actions for home/community/work/leisure, To improve gait and locomotor functions, To increase flexibility/ROM, To improve endurance, To improve balance, To improve safety with gait Therapeutic Exercise to Include: Strength training, Balance training, Coordination, Agility training, Body mechanics, Postural training, Flexibilty training, Gait and locomotor training, Neuromotor development, Passive ROM, Active ROM, Dynamic Lumbar Stabilization, Scapular Strength/Stabilization For the Purpose of:: To decrease pain, To increase ROM, To improve nutrient delivery to tissue, To improve ability to perform ADL's, To increase tolerance to activity/condition/position, To improve performance and independence with ADL's, To decrease level of supervision to perform tasks, To improve ability of physical actions for home/community/work/leisure, To improve gait and locomotor functions, To improve health of tissue, To decrease soft tissue restriction, To increase flexibility/ROM, To improve endurance, To improve balance, To improve safety with gait Functional Training to Include: Gait training For the Purpose of:: To improve gait and locomotor functions, To improve safety with gait Thank you for the opportunity to evaluate your patient. For Medicare and Medicare HMO plans, please review the plan of care and approve it. It will need to be FAXED BACK to us at [phone] for Medicare purposes. For Medicare only, by signing this I certify the plan of care. Please let me know if there are questions or concerns regarding this plan of care. Physician Signature: Date:
--- NOTE | 2021-07-05 13:48 | HP.PTDCSUM ---
It has been my pleasure to treat DESIREE ROMERO referred by Dr. Darrel Bryant MD, with the diagnosis of multifactorial gait disorder for a total of 5 visit(s). Discharge Date: Please see the following information for a summary of their discharge status. Subjective: Balance problems seem to come and go. Woke up a little groggy and attributes to night time Tylenol that he took before bed. Objective/Function: Good tolerance to the above strength and balance activities. Added carlos step overs to encourage improved hip flexion during swing phase. This analogy carried over pretty well to walking around facility. Goal 1:: I HEP Goal 2:: Be able to walk 340 feet with rolling walker with upright posture without having to stop for a rest break. Goal 3:: Be able to sit to stand X 10 using 0-1 UE to increase leg strength Goal 4:: Increase CATSIB by 10 points to decrease fall risk (score was 25 at eval). Goal 5:: Be able to transfer from sit to supine and supine to sit with SBA Plan: Pt called and stated that he was cancelling all his visits as he is moving to [place]. Therapy really helped and he does not need further. D/C If there are questions or concerns regarding this patient's physical therapy, please feel free to call me at [phone]. Thank you for the referral of this patient. Sincerely, Ernesto Lind, DPT, OCS, CSCS Balance/Gait/Functional tests - Balance/Special Test Scores CATSIB Score (Max score 120 seconds): 25 Lower Extremity Functional Score: 31
== END 2021-07-03 19:00 | disposition home or self-care (01) ==
LOC: PT 11:00
PROVIDERS: PCP Family Medicine; Referring Provider Family Medicine; Visit Provider Family Medicine
DX: R26.89 Other abnormalities of gait and mobility (principal)
CPT/HCPCS: 97110; 97162